=== PATIENT | male | born 1950 | race Caucasian/White ===

== ENCOUNTER 2020-08-21 19:10 | Inpatient (IN) | payer MEDICARE, MEDICAID ==
[~2020-08-21] VITALS: Ht 175.3 cm; Wt 105.3 kg
[2020-08-21] MEDS ORDERED: PIPERACILLIN/TAZ 3.375G PREMIX 50 ML IV NR (19:36)
[2020-08-21] MEDS ORDERED: SODIUM CHLORIDE 0.9% 1000ML BAG (SEPSIS BOLUS) IV ONE (19:45)
[2020-08-21] MEDS ORDERED: PIPERACILLIN/TAZOBACTAM 3.375GM/50ML PREMIX IV ONE (19:45)
[2020-08-21] MEDS ORDERED: ACETAMINOPHEN 325MG TABLET PO NR (20:00)
[2020-08-21 23:08] LABS: BASOPHILS % 0.4 % (0.0-2.0); HEMATOCRIT. 38.8 % (42.0-52.0); HEMOGLOBIN. 13.6 g/dL (14.0-18.0); LYMPHOCYTES % 12.2 % (20.0-50.0); MEAN CORPUSCULAR HEMOGLOBIN 29.9 pg (28.0-32.0); MEAN CORPUSCULAR VOLUME 85.2 fL (80.0-94.0); MEAN PLATELET VOLUME 9.1 fl (7.4-10.4); MONOCYTES % 6.5 % (2.0-8.0); NEUTROPHILS % 80.9 % (40.0-76.0); PLATELET 202 x1000/uL (130-400); RED BLOOD CELL COUNT 4.55 mill/uL (4.7-6.1); RED CELL DISTRIBUTION WIDTH 13.7 % (11.6-14.6)
[2020-08-21 23:17] LABS: CHLORIDE 98 mEq/L (98-107)
[2020-08-22] MEDS ORDERED: CEFTRIAXONE 1 G PREMIX 50 ML IV ONE
[2020-08-22] MEDS ORDERED: IOHEXOL-300 100 ML BOTTLE ONE (00:52)
[2020-08-22] MEDS ORDERED: CEFTRIAXONE 1,000 MG in DEXTROSE 5% WATER 50 ML IV SCH (02:00)
[2020-08-22 04:06] LABS: CLARITY URINE CLEAR (CLEAR); COLOR URINE YELLOW (YELLOW); KETONES URINE 1+ (NEGATIVE); LEUKOCYTE ESTERASE URINE NEGATIVE (NEGATIVE); NITRITE URINE NEGATIVE (NEGATIVE); OCCULT BLOOD URINE 2+ (NEGATIVE); PH URINE 5.5 (4.5-8.0); PROTEIN URINE 2+ (NEGATIVE); SPECIFIC GRAVITY URINE 1.042 (1.005-1.030)
[2020-08-22] MEDS ORDERED: DIPHENHYDRAMINE 50MG/ML VIAL IV PRN (16:00)
[2020-08-22] MEDS ORDERED: MAGNESIUM/ALUMINUM HYDROXIDE/SIMETHICONE 30ML UDC PO PRN (16:00)
[2020-08-22] MEDS ORDERED: DEXTROSE 50% WATER 50ML SYRINGE IV PRN (16:00)
[2020-08-22] MEDS ORDERED: NA PHOS,M-B/NA PHOS,DI-BA ENEMA 118ML PR PRN (16:00)
[2020-08-22] MEDS ORDERED: GUAIFENESIN 200MG/10ML SUGAR FREE UDC PO PRN (16:00)
[2020-08-22] MEDS ORDERED: LORAZEPAM 0.5MG TABLET PO PRN (16:00)
[2020-08-22] MEDS ORDERED: ONDANSETRON HCL 4MG/2ML INJ IV PRN (16:00)
[2020-08-22] MEDS ORDERED: DOCUSATE SODIUM 100MG CAPSULE PO PRN (16:00)
[2020-08-22] MEDS ORDERED: ACETAMINOPHEN 650MG SUPP PR PRN (16:00)
[2020-08-22] MEDS ORDERED: HYDROCODONE/ACETAMINOPHEN 5/325MG TABLET PO PRN (16:00)
[2020-08-22] MEDS: FAMOTIDINE 20MG/2ML VIAL IV SCH (17:00)
[2020-08-22] MEDS ORDERED: AZITHROMYCIN 500 MG in DEXT 5% WATER 250 ML IV SCH (17:00)
[2020-08-22] MEDS ORDERED: METHYLPREDNISOLONE SOD SUCC 40 MG/ML VIAL IV SCH (17:00)
[2020-08-22 17:08] LABS: BG BASE EXCESS 1.3 mmol/L (-2.0-2.0); BG CARBOXYHEMOGLOBIN 0.6 % (0.5-1.5); BG DEOXYHEMOGLOBIN 6.3 % (0.0-5.0); BG FRACTION INSPIRED OXYGEN 21; BG HCO3 ACT 24.6 mmol/L (22.0-26.0); BG METHEMOGLOBIN 0.2 % (0.0-1.5); BG OXYGEN SATURATION 93.6 % (92.0-98.5); BG OXYHEMOGLOBIN 92.9 % (94.0-97.0); BG PH 7.465 (7.350-7.450); BG PO2 62.5 mmHg (75.0-100.0); BG SAMPLE SITE LEFT RADIAL; BG TOTAL HEMOGLOBIN 14.9 g/dL (12.0-18.0); BG VENT MODE ROOM AIR
[2020-08-22] MEDS: BLOOD SUGAR DIAGNOSTIC STRIP TEST SCH ×2 (17:32→22:44)
[2020-08-22] MEDS: INSULIN LISPRO 100 UNITS/ML SUBCUT SCH ×2 (18:35→22:50)
[2020-08-22] MEDS ORDERED: NICARDIPINE 100 MG in SODIUM CHLORIDE 0.9% 60 ML IV PRN (20:30)
[2020-08-22] MEDS ORDERED: CEFTRIAXONE 1 G PREMIX 50 ML IV SCH (21:00)
[2020-08-22] MEDS ORDERED: LEVETIRACETAM 500MG PREMIX 100 ML IV SCH (21:00)
[2020-08-22] MEDS: DEXT 5%/LACTATED RINGERS 1,000 ML IV SCH (21:36)
[2020-08-22] MEDS: DILTIAZEM HCL 30MG TABLET PO SCH (22:49)
[2020-08-22 23:37] LABS: CREATINE KINASE MB FRACTION 1.7 ng/mL (0.5-3.6)
[2020-08-23] VITALS (78 sets, daily range): BP systolic 86–153; BP diastolic 34–99
[2020-08-23] MEDS: DEXAMETHASONE 4MG/ML 1ML VIAL IV SCH ×4 (00:38→18:12)
[2020-08-23] MEDS: NICARDIPINE 100 MG in SODIUM CHLORIDE 0.9% 60 ML IV PRN ×2 (00:39→09:55)
[2020-08-23] MEDS: DILTIAZEM HCL 30MG TABLET PO SCH ×3 (05:03→21:17)
[2020-08-23] MEDS: BLOOD SUGAR DIAGNOSTIC STRIP TEST SCH ×4 (05:52→20:43)
[2020-08-23] MEDS: INSULIN LISPRO 100 UNITS/ML SUBCUT SCH ×4 (05:57→20:42)
[2020-08-23 06:08] LABS: BASOPHILS % 0.3 % (0.0-2.0); CHLORIDE 96 mEq/L (98-107); HEMATOCRIT. 39.6 % (42.0-52.0); HEMOGLOBIN. 13.7 g/dL (14.0-18.0); LYMPHOCYTES % 8.6 % (20.0-50.0); MEAN CORPUSCULAR HEMOGLOBIN 29.4 pg (28.0-32.0); MEAN PLATELET VOLUME 10.5 fl (7.4-10.4); MONOCYTES % 2.4 % (2.0-8.0); NEUTROPHILS % 88.7 % (40.0-76.0); PLATELET 181 x1000/uL (130-400); RED BLOOD CELL COUNT 4.66 mill/uL (4.7-6.1); RED CELL DISTRIBUTION WIDTH 13.8 % (11.6-14.6)
[2020-08-23 06:19] LABS: LDL CHOLESTEROL 78 mg/dL (5-100)
[2020-08-23 06:20] LABS: CREATINE KINASE MB FRACTION 3.2 ng/mL (0.5-3.6); HDL CHOLESTEROL 34 mg/dL (40-59)
[2020-08-23 06:21] LABS: CREATINE KINASE 355 IU/L (39-308); T4 FREE 1.12 ng/dL (0.76-1.46)
[2020-08-23] MEDS: FAMOTIDINE 20MG/2ML VIAL IV SCH (09:54)
[2020-08-23] MEDS: LEVETIRACETAM 500MG PREMIX 100 ML IV SCH ×2 (09:55→20:42)
[2020-08-23] MEDS ORDERED: IOHEXOL-350 100 ML BOTTLE ONE (10:53)
[2020-08-23] MEDS ORDERED: INSULIN GLARGINE UD 100 UNITS/ML SYR SUBCUT NR (13:30)
[2020-08-23 13:32] LABS: BG CARBOXYHEMOGLOBIN 0.5 % (0.5-1.5); BG DEOXYHEMOGLOBIN 8.1 % (0.0-5.0); BG FRACTION INSPIRED OXYGEN 21; BG HCO3 ACT 20.4 mmol/L (22.0-26.0); BG METHEMOGLOBIN 0.3 % (0.0-1.5); BG OXYGEN SATURATION 91.8 % (92.0-98.5); BG OXYHEMOGLOBIN 91.1 % (94.0-97.0); BG PCO2 31.8 mmHg (35.0-45.0); BG PH 7.425 (7.350-7.450); BG PO2 58.6 mmHg (75.0-100.0); BG SAMPLE SITE RIGHT RADIAL; BG TOTAL HEMOGLOBIN 14.4 g/dL (12.0-18.0); BG VENT MODE ROOM AIR
[2020-08-23] MEDS: AZITHROMYCIN 500 MG in DEXT 5% WATER 250 ML IV SCH (17:56)
[2020-08-23] MEDS: CEFTRIAXONE 1,000 MG in DEXTROSE 5% WATER 50 ML IV SCH (21:17)
[2020-08-23] MEDS: INSULIN GLARGINE UD 100 UNITS/ML SYR SUBCUT SCH (21:18)
[2020-08-24] VITALS (26 sets, daily range): BP systolic 107–150; BP diastolic 46–88
[2020-08-24] MEDS: DEXAMETHASONE 4MG/ML 1ML VIAL IV SCH ×4 (00:08→17:40)
[2020-08-24] MEDS: DEXT 5%/LACTATED RINGERS 1,000 ML IV SCH (05:11)
[2020-08-24 06:00] LABS: HEMATOCRIT. 38.3 % (42.0-52.0); HEMOGLOBIN. 13.3 g/dL (14.0-18.0); MEAN CORPUSCULAR HEMOGLOBIN 29.3 pg (28.0-32.0); MEAN CORPUSCULAR VOLUME 84.5 fL (80.0-94.0); MEAN PLATELET VOLUME 10.5 fl (7.4-10.4); PLATELET 200 x1000/uL (130-400); RED BLOOD CELL COUNT 4.53 mill/uL (4.7-6.1)
[2020-08-24] MEDS: DILTIAZEM HCL 30MG TABLET PO SCH ×3 (06:00→22:31)
[2020-08-24] MEDS: BLOOD SUGAR DIAGNOSTIC STRIP TEST SCH ×4 (06:16→21:00)
[2020-08-24] MEDS: INSULIN LISPRO 100 UNITS/ML SUBCUT SCH ×5 (06:21→22:33)
[2020-08-24] MEDS: FAMOTIDINE 20MG/2ML VIAL IV SCH (09:33)
[2020-08-24] MEDS: LEVETIRACETAM 500MG PREMIX 100 ML IV SCH ×2 (09:34→22:34)
[2020-08-24] MEDS: INSULIN GLARGINE UD 100 UNITS/ML SYR SUBCUT SCH ×2 (09:42→22:34)
[2020-08-24] MEDS ORDERED: IOHEXOL-300 100 ML BOTTLE ONE (13:04)
[2020-08-24] MEDS ORDERED: SODIUM BICARBONATE 4% (2.4MEQ) 5ML VIAL IV ONE (13:04)
[2020-08-24] MEDS ORDERED: LIDOCAINE HCL 1% 20ML VIAL (Pyxis) INJ ONE (13:04)
[2020-08-24 13:34] LABS: BG BASE EXCESS -0.6 mmol/L (-2.0-2.0); BG CARBOXYHEMOGLOBIN 0.2 % (0.5-1.5); BG DEOXYHEMOGLOBIN 5.7 % (0.0-5.0); BG METHEMOGLOBIN 0.3 % (0.0-1.5); BG OXYGEN SATURATION 94.3 % (92.0-98.5); BG OXYHEMOGLOBIN 93.8 % (94.0-97.0); BG PCO2 30.7 mmHg (35.0-45.0); BG PH 7.474 (7.350-7.450); BG PO2 66.8 mmHg (75.0-100.0); BG SAMPLE SITE RIGHT RADIAL; BG TOTAL HEMOGLOBIN 13.6 g/dL (12.0-18.0); BG VENT MODE ROOM AIR
[2020-08-24] MEDS: AZITHROMYCIN 500 MG in DEXT 5% WATER 250 ML IV SCH (17:40)
[2020-08-24 20:07] LABS: PLATELET ESTIMATE NORMAL
[2020-08-24] MEDS: CEFTRIAXONE 1,000 MG in DEXTROSE 5% WATER 50 ML IV SCH (22:34)
[2020-08-25 06:19] VITALS: BP 176/103
[2020-08-25] MEDS: INSULIN LISPRO 100 UNITS/ML SUBCUT SCH ×4 (06:21→21:00)
[2020-08-25] MEDS: DILTIAZEM HCL 30MG TABLET PO SCH ×3 (06:21→23:42)
[2020-08-25] MEDS: DEXAMETHASONE 4MG/ML 1ML VIAL IV SCH ×2 (06:21→12:31)
[2020-08-25] MEDS: BLOOD SUGAR DIAGNOSTIC STRIP TEST SCH ×4 (06:21→21:00)
[2020-08-25 07:22] LABS: HEMATOCRIT. 44.2 % (42.0-52.0); MEAN CORPUSCULAR HEMOGLOBIN 28.7 pg (28.0-32.0); MEAN CORPUSCULAR VOLUME 84.6 fL (80.0-94.0); MEAN PLATELET VOLUME 10.6 fl (7.4-10.4); PLATELET 226 x1000/uL (130-400); RED BLOOD CELL COUNT 5.23 mill/uL (4.7-6.1)
[2020-08-25 07:45] LABS: CHLORIDE 99 mEq/L (98-107)
[2020-08-25 08:00] VITALS: BP 139/76
[2020-08-25] MEDS: LEVETIRACETAM 500MG PREMIX 100 ML IV SCH (08:44)
[2020-08-25] MEDS: FAMOTIDINE 20MG/2ML VIAL IV SCH (08:45)
[2020-08-25] MEDS: INSULIN GLARGINE UD 100 UNITS/ML SYR SUBCUT SCH ×2 (09:25→22:00)
[2020-08-25 11:37] VITALS: BP 154/97
[2020-08-25 13:11] LABS: PLATELET ESTIMATE NORMAL
[2020-08-25 16:23] VITALS: BP 151/96
[2020-08-25] MEDS: AZITHROMYCIN 500 MG in DEXT 5% WATER 250 ML IV SCH (17:44)
[2020-08-25] MEDS: LOSARTAN POTASSIUM 25 MG TABLET PO SCH (17:45)
[2020-08-25 20:00] VITALS: BP 141/86
[2020-08-26] VITALS: BP 131/79
[2020-08-26] MEDS ORDERED: HALOPERIDOL LACTATE 5MG/ML VIAL IM NR (01:00)
[2020-08-26] MEDS: DILTIAZEM HCL 30MG TABLET PO SCH ×4 (02:00→21:24)
[2020-08-26] MEDS: CEFTRIAXONE 1,000 MG in DEXTROSE 5% WATER 50 ML IV SCH (03:49)
[2020-08-26] MEDS: LEVETIRACETAM 500MG PREMIX 100 ML IV SCH ×3 (03:49→21:00)
[2020-08-26 04:00] VITALS: BP 151/89
[2020-08-26] MEDS: INSULIN LISPRO 100 UNITS/ML SUBCUT SCH ×4 (06:19→21:27)
[2020-08-26] MEDS: BLOOD SUGAR DIAGNOSTIC STRIP TEST SCH ×4 (06:19→20:57)
[2020-08-26 06:47] LABS: HEMATOCRIT. 43.2 % (42.0-52.0); HEMOGLOBIN. 14.8 g/dL (14.0-18.0); MEAN CORPUSCULAR VOLUME 84.7 fL (80.0-94.0); MEAN PLATELET VOLUME 10.8 fl (7.4-10.4); PLATELET 215 x1000/uL (130-400)
[2020-08-26 07:07] LABS: CHLORIDE 97 mEq/L (98-107)
[2020-08-26 08:00] VITALS: BP 144/81
[2020-08-26] MEDS ORDERED: PREDNISONE 20MG TABLET PO SCH (09:00)
[2020-08-26] MEDS: FAMOTIDINE 20MG/2ML VIAL IV SCH (10:10)
[2020-08-26] MEDS: ACETAMINOPHEN 325MG TABLET PO PRN ×2 (10:10→21:29)
[2020-08-26] MEDS: LOSARTAN POTASSIUM 25 MG TABLET PO SCH (10:11)
[2020-08-26] MEDS: INSULIN GLARGINE UD 100 UNITS/ML SYR SUBCUT SCH ×2 (10:21→22:30)
[2020-08-26] MEDS: DEXAMETHASONE 10 MG/ML VIAL IV SCH (12:00)
[2020-08-26 12:09] VITALS: BP 107/69
[2020-08-26] MEDS: ALBUTEROL 6.7GM HFA INHALER ORI SCH ×2 (12:30→17:46)
[2020-08-26 13:35] LABS: BG BASE EXCESS 0.9 mmol/L (-2.0-2.0); BG CARBOXYHEMOGLOBIN 0.2 % (0.5-1.5); BG DEOXYHEMOGLOBIN 10.8 % (0.0-5.0); BG FRACTION INSPIRED OXYGEN 21; BG HCO3 ACT 23.4 mmol/L (22.0-26.0); BG METHEMOGLOBIN 0.2 % (0.0-1.5); BG OXYGEN SATURATION 89.2 % (92.0-98.5); BG OXYHEMOGLOBIN 88.8 % (94.0-97.0); BG PCO2 31.5 mmHg (35.0-45.0); BG PH 7.489 (7.350-7.450); BG PO2 53.3 mmHg (75.0-100.0); BG SAMPLE SITE RIGHT BRACHIAL; BG TOTAL HEMOGLOBIN 14.4 g/dL (12.0-18.0); BG VENT MODE ROOM AIR
[2020-08-26 13:37] LABS: PLATELET ESTIMATE NORMAL
[2020-08-26 16:00] VITALS: BP 164/104
[2020-08-26] MEDS ORDERED: LEVOFLOXACIN 500MG PREMIX 100 ML IV SCH (17:30)
[2020-08-26] MEDS ORDERED: LEVOFLOXACIN 750MG PREMIX 100 ML IV SCH (17:30)
[2020-08-26 20:00] VITALS: BP 181/110
[2020-08-26] MEDS: CLONIDINE 0.1MG TABLET PO PRN (21:24)
[2020-08-27] VITALS: BP 150/93
[2020-08-27] MEDS: ALBUTEROL 6.7GM HFA INHALER ORI SCH ×4 (00:30→18:24)
[2020-08-27] MEDS: DILTIAZEM HCL 30MG TABLET PO SCH ×4 (02:54→21:13)
[2020-08-27 04:30] VITALS: BP 153/107
[2020-08-27] MEDS: ACETAMINOPHEN 325MG TABLET PO PRN ×2 (05:51→21:12)
[2020-08-27] MEDS: CLONIDINE 0.1MG TABLET PO PRN ×2 (05:51→13:48)
[2020-08-27] MEDS: BLOOD SUGAR DIAGNOSTIC STRIP TEST SCH ×4 (06:13→20:30)
[2020-08-27] MEDS: INSULIN LISPRO 100 UNITS/ML SUBCUT SCH ×4 (06:23→21:19)
[2020-08-27 08:00] VITALS: BP_SYST 123; BP_SYST 157; BP_DIAS 72; BP_DIAS 97
[2020-08-27] MEDS: DEXAMETHASONE 10 MG/ML VIAL IV SCH (09:00)
[2020-08-27] MEDS: LEVETIRACETAM 500MG PREMIX 100 ML IV SCH (09:00)
[2020-08-27] MEDS: FAMOTIDINE 20MG/2ML VIAL IV SCH (09:00)
[2020-08-27 11:08] LABS: BG BASE EXCESS 2.4 mmol/L (-2.0-2.0); BG CARBOXYHEMOGLOBIN 0.1 % (0.5-1.5); BG DEOXYHEMOGLOBIN 10.4 % (0.0-5.0); BG FRACTION INSPIRED OXYGEN 28; BG HCO3 ACT 25.1 mmol/L (22.0-26.0); BG METHEMOGLOBIN 0.3 % (0.0-1.5); BG OXYGEN SATURATION 89.6 % (92.0-98.5); BG OXYHEMOGLOBIN 89.2 % (94.0-97.0); BG PCO2 33.5 mmHg (35.0-45.0); BG PH 7.493 (7.350-7.450); BG PO2 53.2 mmHg (75.0-100.0); BG SAMPLE SITE RIGHT RADIAL; BG TOTAL HEMOGLOBIN 14.7 g/dL (12.0-18.0); BG VENT MODE NASAL CANNULA
[2020-08-27] MEDS: LOSARTAN POTASSIUM 25 MG TABLET PO SCH (11:21)
[2020-08-27] MEDS: INSULIN GLARGINE UD 100 UNITS/ML SYR SUBCUT SCH ×2 (11:32→23:39)
[2020-08-27 12:00] VITALS: BP 170/92
[2020-08-27 16:00] VITALS: BP 157/97
[2020-08-27] MEDS ORDERED: LEVOFLOXACIN 250MG TABLET PO NR (17:30)
[2020-08-27] MEDS: DEXAMETHASONE 4MG TABLET PO SCH (18:25)
[2020-08-27 20:00] VITALS: BP 133/87
[2020-08-27] MEDS: LEVETIRACETAM 500MG/5ML CUP PO SCH (21:12)
[2020-08-28] VITALS: BP 128/66
[2020-08-28] MEDS: DILTIAZEM HCL 30MG TABLET PO SCH ×3 (02:26→13:15)
[2020-08-28] MEDS: ALBUTEROL 6.7GM HFA INHALER ORI SCH ×4 (02:29→18:30)
[2020-08-28 04:00] VITALS: BP 139/87
[2020-08-28] MEDS: BLOOD SUGAR DIAGNOSTIC STRIP TEST SCH ×4 (05:24→20:20)
[2020-08-28] MEDS: INSULIN LISPRO 100 UNITS/ML SUBCUT SCH ×4 (06:00→22:15)
[2020-08-28 07:00] LABS: CHLORIDE 96 mEq/L (98-107)
[2020-08-28 08:00] VITALS: BP_SYST 115; BP_SYST 123; BP_DIAS 59; BP_DIAS 79
[2020-08-28 09:51] LABS: HEMATOCRIT. 48.6 % (42.0-52.0); HEMOGLOBIN. 16.5 g/dL (14.0-18.0); MEAN CORPUSCULAR HEMOGLOBIN 28.7 pg (28.0-32.0); MEAN CORPUSCULAR VOLUME 84.5 fL (80.0-94.0); MEAN PLATELET VOLUME 10.4 fl (7.4-10.4); PLATELET 240 x1000/uL (130-400); RED BLOOD CELL COUNT 5.76 mill/uL (4.7-6.1); RED CELL DISTRIBUTION WIDTH 14.1 % (11.6-14.6)
[2020-08-28] MEDS: DEXAMETHASONE 4MG TABLET PO SCH (10:39)
[2020-08-28] MEDS: LEVOFLOXACIN 250MG TABLET PO SCH (10:39)
[2020-08-28] MEDS: LOSARTAN POTASSIUM 25 MG TABLET PO SCH (10:41)
[2020-08-28 10:42] LABS: PLATELET ESTIMATE NORMAL
[2020-08-28] MEDS ORDERED: SODIUM CHLORIDE 0.9% 1,000 ML IV SCH (10:45)
[2020-08-28] MEDS: FAMOTIDINE 20MG/2ML VIAL IV SCH (10:48)
[2020-08-28] MEDS: LEVETIRACETAM 500MG/5ML CUP PO SCH ×2 (10:48→22:14)
[2020-08-28] MEDS: INSULIN GLARGINE UD 100 UNITS/ML SYR SUBCUT SCH ×2 (10:56→22:16)
[2020-08-28 11:22] LABS: BG BASE EXCESS -0.1 mmol/L (-2.0-2.0); BG CARBOXYHEMOGLOBIN 0.3 % (0.5-1.5); BG DEOXYHEMOGLOBIN 9.5 % (0.0-5.0); BG FRACTION INSPIRED OXYGEN 36; BG HCO3 ACT 23.3 mmol/L (22.0-26.0); BG METHEMOGLOBIN 0.3 % (0.0-1.5); BG OXYGEN SATURATION 90.4 % (92.0-98.5); BG OXYHEMOGLOBIN 89.9 % (94.0-97.0); BG PCO2 34.5 mmHg (35.0-45.0); BG PH 7.447 (7.350-7.450); BG PO2 54.3 mmHg (75.0-100.0); BG SAMPLE SITE RIGHT RADIAL; BG TOTAL HEMOGLOBIN 15.7 g/dL (12.0-18.0); BG VENT MODE NASAL CANNULA
[2020-08-28 12:00] VITALS: BP 129/69
[2020-08-28 16:00] VITALS: BP 115/69
[2020-08-28 20:00] VITALS: BP 147/88
[2020-08-28] MEDS: DILTIAZEM HCL 60MG TABLET PO SCH (22:14)
[2020-08-29] VITALS: BP 138/70
[2020-08-29] MEDS: DILTIAZEM HCL 60MG TABLET PO SCH ×4 (03:29→20:00)
[2020-08-29 04:00] VITALS: BP 136/80
[2020-08-29] MEDS: BLOOD SUGAR DIAGNOSTIC STRIP TEST SCH ×4 (05:30→21:40)
[2020-08-29] MEDS: INSULIN LISPRO 100 UNITS/ML SUBCUT SCH ×4 (06:24→21:00)
[2020-08-29 08:00] VITALS: BP 146/81
[2020-08-29] MEDS: LOSARTAN POTASSIUM 25 MG TABLET PO SCH (09:05)
[2020-08-29] MEDS: FAMOTIDINE 20MG/2ML VIAL IV SCH (09:05)
[2020-08-29] MEDS: DEXAMETHASONE 4MG TABLET PO SCH (09:05)
[2020-08-29] MEDS: LEVETIRACETAM 500MG/5ML CUP PO SCH ×2 (09:05→21:13)
[2020-08-29] MEDS: INSULIN GLARGINE UD 100 UNITS/ML SYR SUBCUT SCH ×2 (09:07→21:40)
[2020-08-29 09:13] LABS: BG BASE EXCESS -2.8 mmol/L (-2.0-2.0); BG DEOXYHEMOGLOBIN 6.4 % (0.0-5.0); BG FRACTION INSPIRED OXYGEN 36; BG HCO3 ACT 18.8 mmol/L (22.0-26.0); BG METHEMOGLOBIN 0.3 % (0.0-1.5); BG OXYGEN SATURATION 93.6 % (92.0-98.5); BG OXYHEMOGLOBIN 93.3 % (94.0-97.0); BG PCO2 25.6 mmHg (35.0-45.0); BG PH 7.484 (7.350-7.450); BG SAMPLE SITE RIGHT RADIAL; BG TOTAL HEMOGLOBIN 14.9 g/dL (12.0-18.0); BG VENT MODE NASAL CANNULA
[2020-08-29 09:42] LABS: HEMATOCRIT. 42.3 % (42.0-52.0); HEMOGLOBIN. 14.6 g/dL (14.0-18.0); MEAN CORPUSCULAR HEMOGLOBIN 28.8 pg (28.0-32.0); MEAN CORPUSCULAR VOLUME 83.7 fL (80.0-94.0); MEAN PLATELET VOLUME 10.8 fl (7.4-10.4); PLATELET 244 x1000/uL (130-400); RED BLOOD CELL COUNT 5.06 mill/uL (4.7-6.1); RED CELL DISTRIBUTION WIDTH 14.2 % (11.6-14.6)
[2020-08-29 09:59] LABS: CHLORIDE 92 mEq/L (98-107)
[2020-08-29] MEDS ORDERED: POTASSIUM CHLORIDE 20MEQ TABLET SR PO NR (11:00)
[2020-08-29] MEDS: LEVOFLOXACIN 250MG TABLET PO SCH (11:07)
[2020-08-29 12:00] VITALS: BP 130/75
[2020-08-29] MEDS ORDERED: LORAZEPAM 2MG/ML CPJ IV PRN (12:00)
[2020-08-29] MEDS ORDERED: LORAZEPAM 2MG/ML CPJ IV ONE (12:00)
[2020-08-29 12:39] LABS: PLATELET ESTIMATE NORMAL
[2020-08-29 16:00] VITALS: BP 145/83
[2020-08-29] MEDS: QUETIAPINE FUMARATE 25MG TABLET PO SCH (16:44)
[2020-08-29 20:00] VITALS: BP 110/74
[2020-08-30] VITALS: BP 129/74
[2020-08-30] MEDS: ALBUTEROL 6.7GM HFA INHALER ORI SCH ×4 (00:49→18:42)
[2020-08-30] MEDS: DILTIAZEM HCL 60MG TABLET PO SCH ×4 (02:00→23:06)
[2020-08-30 04:00] VITALS: BP 138/88
[2020-08-30 06:42] LABS: HEMATOCRIT 45.9 % (42.0-52.0); HEMOGLOBIN 15.8 g/dL (14.0-18.0); MEAN CORPUSCULAR HEMOGLOBIN 29.2 pg (28.0-32.0); MEAN CORPUSCULAR VOLUME 84.8 fL (80.0-94.0); PLATELET 247 x1000/uL (130-400); RED BLOOD CELL COUNT 5.41 mill/uL (4.7-6.1); RED CELL DISTRIBUTION WIDTH 14.3 % (11.6-14.6)
[2020-08-30 06:54] LABS: CHLORIDE 97 mEq/L (98-107)
[2020-08-30] MEDS: BLOOD SUGAR DIAGNOSTIC STRIP TEST SCH ×4 (06:56→21:00)
[2020-08-30 08:00] VITALS: BP 143/85
[2020-08-30] MEDS: FAMOTIDINE 20MG/2ML VIAL IV SCH (10:35)
[2020-08-30] MEDS: LEVETIRACETAM 500MG/5ML CUP PO SCH ×2 (10:35→23:06)
[2020-08-30] MEDS: LEVOFLOXACIN 250MG TABLET PO SCH (10:36)
[2020-08-30] MEDS: LOSARTAN POTASSIUM 25 MG TABLET PO SCH (10:36)
[2020-08-30] MEDS: DEXAMETHASONE 4MG TABLET PO SCH (10:36)
[2020-08-30] MEDS: QUETIAPINE FUMARATE 25MG TABLET PO SCH (10:36)
[2020-08-30] MEDS: INSULIN LISPRO 100 UNITS/ML SUBCUT SCH ×4 (10:38→21:00)
[2020-08-30] MEDS: INSULIN GLARGINE UD 100 UNITS/ML SYR SUBCUT SCH ×2 (10:53→23:08)
[2020-08-30 12:00] VITALS: BP 134/88
[2020-08-30] MEDS ORDERED: INSULIN GLARGINE UD 100 UNITS/ML SYR SUBCUT NR (13:00)
[2020-08-30 16:00] VITALS: BP 101/69
[2020-08-30 20:00] VITALS: BP 131/69
[2020-08-31] VITALS: BP 131/75
[2020-08-31] MEDS: ALBUTEROL 6.7GM HFA INHALER ORI SCH ×4 (00:30→17:25)
[2020-08-31] MEDS: DILTIAZEM HCL 60MG TABLET PO SCH ×4 (02:00→21:40)
[2020-08-31 04:00] VITALS: BP 156/92
[2020-08-31] MEDS: BLOOD SUGAR DIAGNOSTIC STRIP TEST SCH ×4 (06:25→21:41)
[2020-08-31 08:00] VITALS: BP 130/75
[2020-08-31] MEDS: QUETIAPINE FUMARATE 25MG TABLET PO SCH (08:36)
[2020-08-31] MEDS: FAMOTIDINE 20MG/2ML VIAL IV SCH (08:36)
[2020-08-31] MEDS: LEVETIRACETAM 500MG/5ML CUP PO SCH ×2 (08:36→21:39)
[2020-08-31] MEDS: DEXAMETHASONE 4MG TABLET PO SCH (08:36)
[2020-08-31] MEDS: LOSARTAN POTASSIUM 25 MG TABLET PO SCH (08:36)
[2020-08-31] MEDS: INSULIN LISPRO 100 UNITS/ML SUBCUT SCH ×4 (08:38→21:00)
[2020-08-31] MEDS: INSULIN GLARGINE UD 100 UNITS/ML SYR SUBCUT SCH ×2 (09:36→21:41)
[2020-08-31] MEDS: LEVOFLOXACIN 250MG TABLET PO SCH (11:38)
[2020-08-31 12:00] VITALS: BP 103/68
[2020-08-31] MEDS ORDERED: KEPP500 MT (14:01)
[2020-08-31] MEDS ORDERED: LOSA25TA3 MT (14:01)
[2020-08-31] MEDS ORDERED: ALBU90AE INH (14:01)
[2020-08-31] MEDS ORDERED: FAMO-135 PO (14:02)
[2020-08-31] MEDS ORDERED: CEFEPIME 500 MG in DEXTROSE 5% WATER 50 ML IV SCH (14:30)
[2020-08-31] MEDS ORDERED: LANC1COM2 MC (15:35)
[2020-08-31] MEDS ORDERED: METF-414 MT (15:35)
[2020-08-31] MEDS ORDERED: BLOO-1465 MT (15:35)
[2020-08-31 16:00] VITALS: BP 138/89
[2020-08-31 20:00] VITALS: BP 143/95
[2020-09-01] VITALS: BP 142/88
[2020-09-01] MEDS: DILTIAZEM HCL 60MG TABLET PO SCH ×2 (02:09→12:46)
[2020-09-01] MEDS: ALBUTEROL 6.7GM HFA INHALER ORI SCH ×2 (02:10→06:08)
[2020-09-01 04:00] VITALS: BP 141/86
[2020-09-01] MEDS: BLOOD SUGAR DIAGNOSTIC STRIP TEST SCH (06:08)
[2020-09-01] MEDS: INSULIN LISPRO 100 UNITS/ML SUBCUT SCH (07:59)
[2020-09-01 08:00] VITALS: BP 113/73
[2020-09-01] MEDS: INSULIN GLARGINE UD 100 UNITS/ML SYR SUBCUT SCH ×2 (10:00→12:47)
[2020-09-01] MEDS: LEVETIRACETAM 500MG/5ML CUP PO SCH (12:46)
[2020-09-01] MEDS: DEXAMETHASONE 4MG TABLET PO SCH (12:46)
[2020-09-01] MEDS: QUETIAPINE FUMARATE 25MG TABLET PO SCH (12:54)
[2020-09-01] MEDS: FAMOTIDINE 20MG/2ML VIAL IV SCH (12:54)
[2020-09-01] MEDS: LEVOFLOXACIN 250MG TABLET PO SCH (12:54)
[2020-09-01] MEDS: LOSARTAN POTASSIUM 25 MG TABLET PO SCH (12:54)
[2020-09-01 14:40] VITALS: BP 114/76
== END 2020-09-01 15:20 | disposition home health service (06) | DRG 871 ==
LOC: EDBD 20:17 → ER 20:17 → MICUSO 08-22 01:37 → EDBEDREQDT 08-22 01:41 → EDBEDREQ 08-22 01:41 → EDBEDREQTM 08-22 01:41 → SUPCPDRO 08-22 14:04 → ENRESERV 08-22 20:24 → CANRESERV 08-22 20:24 → MICUSO 08-22 23:45 → 8WST 08-24 12:00
PROVIDERS: ADMIT Internal Medicine; ATTEND Internal Medicine
PROC: 06H03DZ Insertion of Intraluminal Device into Inferior Vena Cava, Percutaneous Approach (ICD-10-PCS; principal; 2020-08-24)
PROC: B5191ZZ Fluoroscopy of Inferior Vena Cava using Low Osmolar Contrast (ICD-10-PCS; 2020-08-24)
DX: A41.89 Other specified sepsis (principal); U07.1 COVID-19; G93.41 Metabolic encephalopathy; J12.89 Other viral pneumonia; G93.6 Cerebral edema; E87.1 Hypo-osmolality and hyponatremia; D68.59 Other primary thrombophilia; N13.30 Unspecified hydronephrosis; I82.432 Acute embolism and thrombosis of left popliteal vein; I48.91 Unspecified atrial fibrillation; I10 Essential (primary) hypertension; E66.9 Obesity, unspecified; R09.02 Hypoxemia; E11.65 Type 2 diabetes mellitus with hyperglycemia; K82.8 Other specified diseases of gallbladder; R06.03 Acute respiratory distress; D49.2 Neoplasm of unspecified behavior of bone, soft tissue, and skin; D64.9 Anemia, unspecified; D32.9 Benign neoplasm of meninges, unspecified; K76.0 Fatty (change of) liver, not elsewhere classified; K80.20 Calculus of gallbladder without cholecystitis without obstruction; Z95.828 Presence of other vascular implants and grafts; Z68.34 Body mass index [BMI] 34.0-34.9, adult
CPT/HCPCS: 36415; 36600; 37191; 70496; 70553; 71045; 74177; 76705; 78580; 80048; 80053; 80061; 80076; 81003; 82375; 82550; 82553; 82805; 82962; 83036; 83605; 84145; 84439; 84443; 84484; 85025; 85027; 86850; 86900; 87635; 87804; 93005; 93970; 96365; C1769; C1880; C1893; J0456; J0696; J1100; J1630; J1815; J1953; J1956; J2060; J2543; J2920; J3490; J7030; J7040; J7050; J7060; J7512; J8540; Q9967; A4315

== ENCOUNTER 2022-11-06 14:01 | Inpatient (IN) | payer OTHER, MEDICAID ==
[~2022-11-06] VITALS: Ht 172.7 cm; Wt 88.5 kg
[~2022-11-06 14:01] MED LIST: ALBU90AE INH; BLOO-1465 MT; FAMO-135 PO; KEPP500 MT; LANC1COM2 MC; LOSA25TA3 MT; METF-414 MT
[2022-11-06 15:07] LABS: BASOPHILS % 0.5 % (0.0-2.0); EOSINOPHILS % 2.5 % (0.0-5.0); HEMATOCRIT. 28.6 % (42.0-52.0); HEMOGLOBIN. 9.7 g/dL (14.0-18.0); MEAN CORPUSCULAR HEMOGLOBIN 27.9 pg (28.0-32.0); MEAN CORPUSCULAR VOLUME 82.5 fL (80.0-94.0); MEAN PLATELET VOLUME 8.3 fl (7.4-10.4); MONOCYTES % 10.8 % (2.0-8.0); NEUTROPHILS % 75.2 % (40.0-76.0); PLATELET 220 x1000/uL (130-400); RED BLOOD CELL COUNT 3.46 mill/uL (4.7-6.1); RED CELL DISTRIBUTION WIDTH 15.5 % (11.6-14.6)
[2022-11-06 15:16] LABS: CHLORIDE 107 mEq/L (98-107)
[2022-11-07] VITALS: BP_SYST 160; BP_SYST 175; BP_DIAS 82; BP_DIAS 83
[2022-11-07] MEDS: HYDROCODONE/ACETAMINOPHEN 5/325MG TABLET PO PRN ×3 (02:48→23:33)
[2022-11-07] MEDS: CLONIDINE 0.1MG TABLET PO PRN (02:52)
[2022-11-07] MEDS ORDERED: DEXTROSE 50% WATER 50ML SYRINGE IV PRN (07:00)
[2022-11-07] MEDS: BLOOD SUGAR DIAGNOSTIC STRIP TEST SCH ×4 (07:20→21:00)
[2022-11-07] MEDS: INSULIN LISPRO 100 UNITS/ML SUBCUT SCH ×4 (07:50→21:00)
[2022-11-07 08:00] VITALS: BP_SYST 140; BP_SYST 145; BP_DIAS 62; BP_DIAS 73
[2022-11-07] MEDS: PANTOPRAZOLE 40MG DR TABLET PO SCH (09:35)
[2022-11-07] MEDS: ENOXAPARIN 30MG/0.3ML SYR SUBCUT SCH ×2 (09:35→23:24)
[2022-11-07 12:00] VITALS: BP 140/73
[2022-11-07] MEDS: LOSARTAN POTASSIUM 25 MG TABLET PO SCH (12:45)
[2022-11-07] MEDS: LEVETIRACETAM 500MG TABLET PO SCH ×2 (12:45→23:24)
[2022-11-07] MEDS: GABAPENTIN 100MG CAPSULE PO SCH ×2 (15:06→23:24)
[2022-11-07 16:00] VITALS: BP 149/67
[2022-11-07 18:32] LABS: CREATINE KINASE 159 IU/L (39-308)
[2022-11-07 20:00] VITALS: BP 128/62
[2022-11-08] VITALS: BP 157/64
[2022-11-08 04:00] VITALS: BP 149/78
[2022-11-08] MEDS: GABAPENTIN 100MG CAPSULE PO SCH ×3 (06:07→22:00)
[2022-11-08 07:20] LABS: BASOPHILS % 0.7 % (0.0-2.0); EOSINOPHILS % 6.9 % (0.0-5.0); HEMATOCRIT. 26.8 % (42.0-52.0); HEMOGLOBIN. 9.1 g/dL (14.0-18.0); LYMPHOCYTES % 22.8 % (20.0-50.0); MEAN CORPUSCULAR HEMOGLOBIN 27.6 pg (28.0-32.0); MEAN CORPUSCULAR VOLUME 81.7 fL (80.0-94.0); MEAN PLATELET VOLUME 8.6 fl (7.4-10.4); MONOCYTES % 10.9 % (2.0-8.0); NEUTROPHILS % 58.7 % (40.0-76.0); PLATELET 206 x1000/uL (130-400); RED BLOOD CELL COUNT 3.28 mill/uL (4.7-6.1); RED CELL DISTRIBUTION WIDTH 15.2 % (11.6-14.6)
[2022-11-08 07:41] LABS: CHLORIDE 109 mEq/L (98-107)
[2022-11-08] MEDS: INSULIN LISPRO 100 UNITS/ML SUBCUT SCH ×4 (07:50→21:00)
[2022-11-08 08:00] VITALS: BP 160/87
[2022-11-08] MEDS: BLOOD SUGAR DIAGNOSTIC STRIP TEST SCH ×4 (08:15→21:00)
[2022-11-08] MEDS: PANTOPRAZOLE 40MG DR TABLET PO SCH (09:08)
[2022-11-08] MEDS: ENOXAPARIN 30MG/0.3ML SYR SUBCUT SCH ×2 (09:08→21:00)
[2022-11-08] MEDS: LEVETIRACETAM 500MG TABLET PO SCH ×2 (09:08→17:39)
[2022-11-08] MEDS: LOSARTAN POTASSIUM 25 MG TABLET PO SCH (09:08)
[2022-11-08 12:00] VITALS: BP 170/81
[2022-11-08 16:00] VITALS: BP 158/87
[2022-11-09] MEDS: GABAPENTIN 100MG CAPSULE PO SCH ×3 (06:34→22:00)
[2022-11-09] MEDS: BLOOD SUGAR DIAGNOSTIC STRIP TEST SCH ×4 (06:38→21:00)
[2022-11-09] MEDS: INSULIN LISPRO 100 UNITS/ML SUBCUT SCH ×4 (07:50→21:00)
[2022-11-09] MEDS: PANTOPRAZOLE 40MG DR TABLET PO SCH (08:50)
[2022-11-09] MEDS: LEVETIRACETAM 500MG TABLET PO SCH ×2 (08:50→16:25)
[2022-11-09] MEDS: LOSARTAN POTASSIUM 25 MG TABLET PO SCH (08:50)
[2022-11-09] MEDS: ENOXAPARIN 30MG/0.3ML SYR SUBCUT SCH ×2 (08:51→21:00)
[2022-11-09 12:00] VITALS: BP 165/81
[2022-11-09 15:51] VITALS: BP 166/82
[2022-11-09] MEDS: CLONIDINE 0.1MG TABLET PO PRN (16:25)
[2022-11-09 20:00] VITALS: BP 157/70
[2022-11-10] VITALS: BP 161/81
[2022-11-10 04:00] VITALS: BP 153/81
[2022-11-10] MEDS: GABAPENTIN 100MG CAPSULE PO SCH ×3 (06:53→21:10)
[2022-11-10] MEDS: BLOOD SUGAR DIAGNOSTIC STRIP TEST SCH ×4 (07:20→21:15)
[2022-11-10] MEDS: INSULIN LISPRO 100 UNITS/ML SUBCUT SCH ×4 (07:50→21:00)
[2022-11-10 08:00] VITALS: BP 149/82
[2022-11-10] MEDS: ENOXAPARIN 30MG/0.3ML SYR SUBCUT SCH ×2 (10:42→21:09)
[2022-11-10] MEDS: PANTOPRAZOLE 40MG DR TABLET PO SCH (10:42)
[2022-11-10] MEDS: LEVETIRACETAM 500MG TABLET PO SCH ×2 (10:42→18:57)
[2022-11-10] MEDS: LOSARTAN POTASSIUM 25 MG TABLET PO SCH (10:43)
[2022-11-10 12:00] VITALS: BP 147/81
[2022-11-10 16:00] VITALS: BP 144/80
[2022-11-10 20:00] VITALS: BP 160/84
[2022-11-11] VITALS (7 sets, daily range): BP systolic 132–161; BP diastolic 75–81
[2022-11-11] MEDS: GABAPENTIN 100MG CAPSULE PO SCH ×3 (06:40→21:55)
[2022-11-11] MEDS: BLOOD SUGAR DIAGNOSTIC STRIP TEST SCH ×4 (07:20→20:58)
[2022-11-11] MEDS: INSULIN LISPRO 100 UNITS/ML SUBCUT SCH ×4 (07:50→20:58)
[2022-11-11] MEDS: LEVETIRACETAM 500MG TABLET PO SCH ×2 (10:05→18:14)
[2022-11-11] MEDS: LOSARTAN POTASSIUM 25 MG TABLET PO SCH (10:05)
[2022-11-11] MEDS: PANTOPRAZOLE 40MG DR TABLET PO SCH (10:05)
[2022-11-11] MEDS: ENOXAPARIN 30MG/0.3ML SYR SUBCUT SCH ×2 (10:10→20:40)
[2022-11-11] MEDS: CLONIDINE 0.1MG TABLET PO PRN (18:20)
[2022-11-11] MEDS ORDERED: NALOXONE HCL 0.4MG/ML VIAL IV PRN (21:00)
[2022-11-12] VITALS: BP 125/76
[2022-11-12] MEDS: GABAPENTIN 100MG CAPSULE PO SCH ×3 (06:37→21:09)
[2022-11-12] MEDS: BLOOD SUGAR DIAGNOSTIC STRIP TEST SCH ×4 (06:44→21:19)
[2022-11-12] MEDS: INSULIN LISPRO 100 UNITS/ML SUBCUT SCH ×4 (07:50→21:00)
[2022-11-12 08:00] VITALS: BP 118/79
[2022-11-12] MEDS: LOSARTAN POTASSIUM 25 MG TABLET PO SCH (09:00)
[2022-11-12] MEDS: LEVETIRACETAM 500MG TABLET PO SCH ×2 (09:00→17:13)
[2022-11-12] MEDS: PANTOPRAZOLE 40MG DR TABLET PO SCH (09:00)
[2022-11-12] MEDS: ENOXAPARIN 30MG/0.3ML SYR SUBCUT SCH ×2 (09:00→21:09)
[2022-11-12 12:00] VITALS: BP 166/78
[2022-11-12 16:00] VITALS: BP 150/83
[2022-11-12 18:33] LABS: BASOPHILS % 0.8 % (0.0-2.0); EOSINOPHILS % 9.2 % (0.0-5.0); HEMATOCRIT. 31.5 % (42.0-52.0); HEMOGLOBIN. 10.4 g/dL (14.0-18.0); LYMPHOCYTES % 26.5 % (20.0-50.0); MEAN CORPUSCULAR HEMOGLOBIN 27.4 pg (28.0-32.0); MEAN CORPUSCULAR VOLUME 82.8 fL (80.0-94.0); MEAN PLATELET VOLUME 8.3 fl (7.4-10.4); MONOCYTES % 9.4 % (2.0-8.0); NEUTROPHILS % 54.1 % (40.0-76.0); PLATELET 247 x1000/uL (130-400); RED BLOOD CELL COUNT 3.81 mill/uL (4.7-6.1); RED CELL DISTRIBUTION WIDTH 15.3 % (11.6-14.6)
[2022-11-13] MEDS: GABAPENTIN 100MG CAPSULE PO SCH ×3 (06:50→21:32)
[2022-11-13] MEDS: BLOOD SUGAR DIAGNOSTIC STRIP TEST SCH ×4 (06:55→21:42)
[2022-11-13] MEDS: INSULIN LISPRO 100 UNITS/ML SUBCUT SCH ×4 (07:50→21:00)
[2022-11-13 08:00] VITALS: BP 144/78
[2022-11-13] MEDS: LEVETIRACETAM 500MG TABLET PO SCH ×2 (09:36→17:00)
[2022-11-13] MEDS: LOSARTAN POTASSIUM 25 MG TABLET PO SCH (09:37)
[2022-11-13] MEDS: PANTOPRAZOLE 40MG DR TABLET PO SCH (09:37)
[2022-11-13] MEDS: ENOXAPARIN 30MG/0.3ML SYR SUBCUT SCH ×2 (09:37→21:31)
[2022-11-13 12:00] VITALS: BP 146/80
[2022-11-13 16:00] VITALS: BP 153/89
[2022-11-13 20:00] VITALS: BP 133/78
[2022-11-14] VITALS: BP 134/82
[2022-11-14 04:00] VITALS: BP 114/63
[2022-11-14] MEDS: GABAPENTIN 100MG CAPSULE PO SCH ×3 (05:53→21:15)
[2022-11-14] MEDS: BLOOD SUGAR DIAGNOSTIC STRIP TEST SCH ×4 (07:20→21:15)
[2022-11-14] MEDS: INSULIN LISPRO 100 UNITS/ML SUBCUT SCH ×4 (07:50→21:00)
[2022-11-14 08:00] VITALS: BP 141/75
[2022-11-14] MEDS: LOSARTAN POTASSIUM 25 MG TABLET PO SCH (09:49)
[2022-11-14] MEDS: PANTOPRAZOLE 40MG DR TABLET PO SCH (09:49)
[2022-11-14] MEDS: LEVETIRACETAM 500MG TABLET PO SCH ×2 (09:49→18:15)
[2022-11-14] MEDS: ENOXAPARIN 30MG/0.3ML SYR SUBCUT SCH ×2 (09:49→21:15)
[2022-11-14 12:00] VITALS: BP 140/72
[2022-11-14 16:00] VITALS: BP 141/77
[2022-11-15] VITALS: BP 150/74
[2022-11-15 04:00] VITALS: BP 155/82
[2022-11-15] MEDS: PANTOPRAZOLE 40MG DR TABLET PO SCH (06:27)
[2022-11-15] MEDS: GABAPENTIN 100MG CAPSULE PO SCH ×2 (06:27→16:26)
[2022-11-15] MEDS: BLOOD SUGAR DIAGNOSTIC STRIP TEST SCH ×3 (07:20→17:20)
[2022-11-15] MEDS: INSULIN LISPRO 100 UNITS/ML SUBCUT SCH ×3 (07:50→17:50)
[2022-11-15 08:00] VITALS: BP 136/89
[2022-11-15] MEDS: LOSARTAN POTASSIUM 25 MG TABLET PO SCH (09:43)
[2022-11-15] MEDS: LEVETIRACETAM 500MG TABLET PO SCH ×2 (09:43→18:09)
[2022-11-15] MEDS: ENOXAPARIN 30MG/0.3ML SYR SUBCUT SCH (09:43)
[2022-11-15 12:00] VITALS: BP 152/84
[2022-11-15 16:00] VITALS: BP 161/92
[2022-11-15 18:50] VITALS: BP 136/89
== END 2022-11-15 19:34 | DRG 551 ==
LOC: ER 14:01 → MICUSO 19:15 → EDBEDREQ 19:18 → 6EST 11-07 00:18
PROVIDERS: ADMIT Internal Medicine; ATTEND Internal Medicine
DX: M48.061 Spinal stenosis, lumbar region without neurogenic claudication (principal); I50.41 Acute combined systolic (congestive) and diastolic (congestive) heart failure; E78.5 Hyperlipidemia, unspecified; E11.9 Type 2 diabetes mellitus without complications; R26.0 Ataxic gait; I48.91 Unspecified atrial fibrillation; M48.02 Spinal stenosis, cervical region; R29.6 Repeated falls; Z20.822 Contact with and (suspected) exposure to COVID-19; Z79.84 Long term (current) use of oral hypoglycemic drugs; Z86.011 Personal history of benign neoplasm of the brain; Z79.899 Other long term (current) drug therapy; Z86.718 Personal history of other venous thrombosis and embolism; I11.0 Hypertensive heart disease with heart failure
CPT/HCPCS: 36415; 70551; 71045; 72141; 72146; 72148; 80048; 80053; 82550; 82962; 83036; 83880; 84484; 85025; 87426; 93005; 93306; 93923; 97116; 97162; 97530; 99285; J1650; J1815